=== PATIENT | male | born 1980 | race Caucasian/White ===

== ENCOUNTER 2023-04-13 23:36 | Inpatient (IN) | payer SELFPAY ==
[2023-04-13 23:47] VITALS: BP 123/84; PULSE 93; RESP 16; TEMP 36.7; O2SAT 99; BMI 26.4
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
[2023-04-14 01:18] LABS: Basophils % 0.3 %; Eosinophils % 0.2 %; Hematocrit 48.4 % (42.0-52.0); Hemoglobin 16.5 g/dL (11.7-16.6); Lymphocytes # 2.6 10^3/uL (0.8-4.8); Lymphocytes % 26.3 %; Mean Corpuscular HGB Conc 34.1 g/dL (30.0-36.0); Mean Corpuscular Hemoglobin 30.5 pg (28.0-34.0); Mean Corpuscular Volume 89.5 fl (80-94); Mean Platelet Volume 8.5 fL (7.4-10.4); Monocytes # 0.8 10^3/uL (0.2-0.9); Monocytes % 7.7 %; Neutrophils # 6.56 10^3/uL (1.8-7.7); Neutrophils % 65.3 %; Nucleated Red Blood Cells % 0 %; Platelet Count 291 10^3/cmm (130-400); Red Blood Count 5.41 10^6/uL (4.1-5.3)
[2023-04-14 01:35] LABS: Acetaminophen 9.2 ug/mL (10-30); Alanine Aminotransferase 24 U/L (0-41); Albumin Level 4.6 g/dL (3.5-5.2); Alcohol Level 103 mg/dL (0-10); Alkaline Phosphatase 71 U/L (40-130); Anion Gap 16.9 (5-19); Aspartate Amino Transferase 27 U/L (0-40); Blood Urea Nitrogen 11 mg/dL (6-20); Calcium 8.6 mg/dL (8.5-10.5); Carbon Dioxide 26 mmol/L (22-29); Chloride 103 mmol/L (98-107); Globulin 2.5 g/dL (1.3-4.6); Glomerular Filtration Rate 124.9 mL/min (90-130); Glucose 97 mg/dL (65-115); Osmolality Calculated 293 mOsm/kg (285-295); Potassium 3.9 mmol/L (3.5-5.1); Sodium 142 mmol/L (136-145); Total Bilirubin 1.3 mg/dL (0.15-1.2); Total Protein 7.1 g/dL (6.6-8.7)
[2023-04-14 01:38] LABS: Salicylate < 0.3 mg/dL (3-10)
[2023-04-14 02:46] VITALS: BP 123/75; PULSE 103; RESP 18; TEMP 36.4; O2SAT 99
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
[2023-04-14 06:31] VITALS: RESP 18
--- NOTE | 2023-04-14 06:31 | PC.NURSE ---
resp 18 pt sleeping
[2023-04-14 07:49] LABS: Glucose Point of Care 80 mg/dL (70-110)
[2023-04-14] MEDS: thiamine 100 mg Tablet PO (09:03)
[2023-04-14] MEDS: folic acid 1 mg Tablet PO (09:04)
[2023-04-14] MEDS: multivitamin therapeutic Tablet 1 TAB PO (09:04)
[2023-04-14 09:38] LABS: Add Urine Microscopic? NO; Charge for UA Resulting for Rev
[2023-04-14 09:48] LABS: Bilirubin Urine Neg (Negative); Blood Urine Neg (Negative); Glucose Urine UA Norm (Normal); Ketones Urine Negative (Negative); Leukocyte Esterase Urine Negative (Negative); Nitrate Urine Negative (Negative); Protein Urine Neg (Negative); Urine Appearance Clear (CLEAR); Urine Color Dark Yellow (Yellow); Urobilinogen Urine 1 mg/dL (Negative); pH Urine 6.5 (5-7)
[2023-04-14 10:07] LABS: Amphetamines Screen Urine Positive (Negative); Barbiturates Screen Urine Negative (Negative); Benzodiazepines Screen Urine Negative (Negative); Cocaine Screen Urine Negative (Negative); Opiate Screen Urine Negative (Negative); PCP Screen Urine Negative (Negative); THC Screen Urine Negative (Negative)
[2023-04-14] MEDS: nicotine 4 mg lozenge MUCOUS MEM ×2 (12:46→19:35)
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
[2023-04-14 14:00] VITALS: BP 122/64; PULSE 117; RESP 18; TEMP 36.7; O2SAT 99
[2023-04-14] MEDS: sertraline 50 mg Tablet 25 MG PO (15:24)
[2023-04-14 20:05] VITALS: BP 114/64; PULSE 97; RESP 18; TEMP 36.9; O2SAT 99
[2023-04-15 06:00] VITALS: RESP 18
--- NOTE | 2023-04-15 06:24 | PC.NURSE ---
resp 18 pt sleeping
[2023-04-15] MEDS: sertraline 50 mg Tablet 25 MG PO ×2 (10:11→17:13)
[2023-04-15] MEDS: folic acid 1 mg Tablet PO (10:11)
[2023-04-15] MEDS: thiamine 100 mg Tablet PO (10:11)
[2023-04-15] MEDS: multivitamin therapeutic Tablet 1 TAB PO (10:11)
[2023-04-15 14:00] VITALS: BP 130/68; PULSE 85; RESP 20; TEMP 36.5; O2SAT 98
[2023-04-15] MEDS: nicotine 4 mg lozenge MUCOUS MEM (15:51)
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
[2023-04-15 22:00] VITALS: BP 113/75; PULSE 86; RESP 16; O2SAT 98
[2023-04-16 05:55] VITALS: RESP 17
[2023-04-16] MEDS: multivitamin therapeutic Tablet 1 TAB PO (08:56)
[2023-04-16] MEDS: folic acid 1 mg Tablet PO (08:56)
[2023-04-16] MEDS: thiamine 100 mg Tablet PO (08:56)
[2023-04-16] MEDS: sertraline 50 mg Tablet PO (08:56)
[2023-04-16] MEDS: nicotine 4 mg lozenge MUCOUS MEM (13:29)
[2023-04-16 14:00] VITALS: BP 131/76; PULSE 108; RESP 20; TEMP 36.6; O2SAT 98
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
[2023-04-16 16:28] VITALS: BP 131/76; PULSE 108; RESP 20; TEMP 36.6; O2SAT 98
== END 2023-04-16 16:28 | disposition home or self-care (01) | DRG 881 ==
LOC: ER 04-14 02:17 → NP 04-14 06:20
PROVIDERS: Admitting Provider Psychiatry & Neurology Psychiatry; Emergency Provider Emergency Medicine; PCP Nurse Practitioner Family; Visit Provider Psychiatry & Neurology Psychiatry
DX: F32.9 Major depressive disorder, single episode, unspecified (principal); R45.851 Suicidal ideations; F10.129 Alcohol abuse with intoxication, unspecified; Y90.5 Blood alcohol level of 100-119 mg/100 ml; F17.220 Nicotine dependence, chewing tobacco, uncomplicated; F41.9 Anxiety disorder, unspecified; R48.0 Dyslexia and alexia
CPT/HCPCS: 36416; 80053; 80306; 80307; 81003; 82962; 85025; 97150; 97165; 99238; 99285